=== PATIENT | male | born 1960 | race African-American/Black ===

== ENCOUNTER → 2018-02-02 | Day surgery (SDC) | payer OTHER ==
[~2018-02-02] MED LIST: GLYCOPYRROLATE 1 MG/5 ML VIAL.; LIDOCAINE 1% PF 2 ML VIAL. ID; LIDOCAINE 2% PF Vial for OR 5 ML VIAL.; MIDAZOLAM HCL/PF 2 MG/2 ML VIAL.; MORPHINE SULFATE 2 MG/ML DISP.SYRIN. IV; NEOSTIGMINE METHYLSULFATE 5 MG/5 ML SYRINGE.; ONDANSETRON PF 4 MG/2 ML VIAL. IV; PROCHLORPERAZINE 10 MG/2 ML VIAL. IV; PROPOFOL 20 ML IV; ceFAZolin 2GM PREMIX 2 GM/50 ML BAG IV; fentaNYL PF VIAL 100 MCG/2 ML VIAL; fentaNYL PF VIAL 100 MCG/2 ML VIAL IV
[2018-02-02] MEDS: IV RINGERS,LACTATED 1000ML 1,000 ML IV ×2 (13:22→16:44)
[2018-02-02] MEDS: BUPIVACAINE-EPI 0.25%-1:200000 50 ML VIAL. (14:44)
[2018-02-02] MEDS: IBUPROFEN 800 MG TABLET. PO (16:45)
[2018-02-02] MEDS: oxyCODONE IR 5 MG TABLET PO (16:55)
[2018-02-02] MEDS: fentaNYL PF VIAL 100 MCG/2 ML VIAL IV (17:02)
== END | disposition home or self-care (01) ==
LOC: SURG 12:36
DX: K40.30 Unilateral inguinal hernia, with obstruction, without gangrene, not specified as recurrent (principal); M19.90 Unspecified osteoarthritis, unspecified site; Z98.890 Other specified postprocedural states; F17.210 Nicotine dependence, cigarettes, uncomplicated; J44.9 Chronic obstructive pulmonary disease, unspecified; E66.9 Obesity, unspecified; Z68.29 Body mass index [BMI] 29.0-29.9, adult; F41.9 Anxiety disorder, unspecified
CPT/HCPCS: 49650; A7015; C1781; J0690; J0780; J2001; J2250; J2704; J2710; J3010; J3490; J7120